=== PATIENT | male | born 1950 | race Caucasian/White ===

== ENCOUNTER 2023-07-21 00:47 | Inpatient (IN) | payer MEDICARE, BC ==
[2023-07-21 01:44] VITALS: BMI 28.8
[2023-07-21] MEDS ORDERED: Acetaminophen 325 MG TAB PO PRN (01:53)
[2023-07-21] MEDS ORDERED: Ondansetron PF 4 MG/2 ML Vial IVP PRN (01:53)
[2023-07-21 02:24] LABS: #Basophils 0.06 10x3/uL (0.0-0.2); %Basophils 0.7 % (0.0-1.0); %Eosinophils 1.8 % (0.0-10.0); %Lymphocytes 16.9 % (21.0-51.0); %Monocytes 6.8 % (0.0-10.0); %Neutrophils 73.3 % (42.0-75.0); Hematocrit 50.7 % (42.0-52.0); Hemoglobin 17.1 g/dL (14.0-18.0); Mean Corpuscular HGB CONC 33.7 g/dL (32.0-36.0); Mean Corpuscular Hemoglobin 33.2 pg (27.0-31.0); Mean Corpuscular Volume 98.4 fL (78.0-98.0); Mean Platelet Volume 8.8 fL (7.4-10.4); Platelet Count 142 10x3/uL (130-400); RBC Distribution Width 14.7 % (11.5-14.5); Red Blood Cell (RBC) Count 5.15 mill/uL (4.70-6.10)
[2023-07-21 02:29] LABS: Hemoglobin A1c 5.7 % (4.0-6.0)
[2023-07-21] MEDS ORDERED: Labetalol HCl 100 MG/20 ML VIAL SLOW IVP PRN (02:35)
[2023-07-21 02:39] LABS: Anion Gap 15 mmol/L (10-20); BUN (Urea Nitrogen) 21 mg/dL (8.4-25.7); Calc. Creatinine Clearance 88 mL/min (70-130); Calcium 9.6 mg/dL (7.8-10.44); Carbon Dioxide 21 mmol/L (23-31); Cardiac Risk 4.8 (Less than 4.5); Chloride 110 mmol/L (98-107); Cholesterol 187 mg/dl (< 200 Desired); Estimated GFR 70; Glucose 94 mg/dL (83-110); HDL Cholesterol 39 mg/dL (>60 Neg Risk); LDL Cholesterol, Calculated 128 mg/dL; Potassium 4.4 mmol/L (3.5-5.1); Sodium 142 mmol/L (136-145); Triglycerides 98 mg/dL (Less than 150)
[2023-07-21] MEDS: Ipratropium/Albuterol 3 ML NEB NEB SCH (05:31)
[2023-07-21] MEDS: Ipratropium/Albuterol 3 ML NEB IPPB SCH (06:52)
[2023-07-21] MEDS: Mometasone 200 MCG/Formoterol 5 MCG 120 PUFF INHALER INH SCH (06:55)
[2023-07-21] MEDS: Aspirin 81 mg Enteric Coated Tablet PO SCH (08:38)
[2023-07-21] MEDS: Enoxaparin 40 MG (0.4 mL) SYRINGE SC SCH (08:38)
[2023-07-21] MEDS: hydrALAZINE 20 MG/ML VIAL SLOW IVP PRN (14:56)
[2023-07-21] MEDS: Atorvastatin Calcium 40 MG TAB PO SCH (21:51)
[2023-07-22 04:19] LABS: Anion Gap 15 mmol/L (10-20); BUN (Urea Nitrogen) 18 mg/dL (8.4-25.7); Calc. Creatinine Clearance 83 mL/min (70-130); Calcium 9.1 mg/dL (7.8-10.44); Carbon Dioxide 22 mmol/L (23-31); Chloride 107 mmol/L (98-107); Estimated GFR 66; Glucose 87 mg/dL (83-110); Potassium 3.7 mmol/L (3.5-5.1); Sodium 140 mmol/L (136-145)
[2023-07-22 04:31] LABS: Hemoglobin 15.9 g/dL (14.0-18.0); Mean Corpuscular Volume 98.2 fL (78.0-98.0); Red Blood Cell (RBC) Count 4.89 mill/uL (4.70-6.10)
[2023-07-22 04:32] LABS: #Basophils 0.06 10x3/uL (0.0-0.2); %Basophils 0.9 % (0.0-1.0); %Eosinophils 3.1 % (0.0-10.0); %Lymphocytes 22.1 % (21.0-51.0); %Monocytes 8.4 % (0.0-10.0); %Neutrophils 65.2 % (42.0-75.0); Mean Corpuscular HGB CONC 33.1 g/dL (32.0-36.0); Mean Corpuscular Hemoglobin 32.5 pg (27.0-31.0); Mean Platelet Volume 9.3 fL (7.4-10.4); Platelet Count 138 10x3/uL (130-400); RBC Distribution Width 14.8 % (11.5-14.5)
[2023-07-22] MEDS: Clopidogrel Bisulfate 75 MG TAB PO SCH (07:46)
[2023-07-22] MEDS: Amlodipine 5 MG TAB PO SCH ×2 (10:29→21:15)
[2023-07-22] MEDS: Lisinopril 10 MG TAB PO SCH (13:24)
[2023-07-23 04:09] LABS: #Basophils 0.06 10x3/uL (0.0-0.2); %Basophils 0.9 % (0.0-1.0); %Eosinophils 2.3 % (0.0-10.0); %Lymphocytes 19.9 % (21.0-51.0); %Monocytes 8.4 % (0.0-10.0); Hematocrit 49.6 % (42.0-52.0); Hemoglobin 16.6 g/dL (14.0-18.0); Mean Corpuscular HGB CONC 33.5 g/dL (32.0-36.0); Mean Corpuscular Hemoglobin 33.5 pg (27.0-31.0); Mean Platelet Volume 9.2 fL (7.4-10.4); Platelet Count 128 10x3/uL (130-400); RBC Distribution Width 14.8 % (11.5-14.5); Red Blood Cell (RBC) Count 4.96 mill/uL (4.70-6.10)
[2023-07-23 04:18] LABS: Anion Gap 14 mmol/L (10-20); BUN (Urea Nitrogen) 17 mg/dL (8.4-25.7); Calc. Creatinine Clearance 93 mL/min (70-130); Calcium 9.7 mg/dL (7.8-10.44); Carbon Dioxide 22 mmol/L (23-31); Chloride 108 mmol/L (98-107); Estimated GFR 76; Glucose 105 mg/dL (83-110); Potassium 3.8 mmol/L (3.5-5.1); Sodium 140 mmol/L (136-145)
[2023-07-23] MEDS: Lisinopril 20 MG TAB PO SCH (08:39)
[2023-07-23] MEDS: Amlodipine 10 MG TAB PO SCH (08:47)
[2023-07-23] MEDS ORDERED: Amlodipine 5 MG TAB PO SCH (09:00)
[2023-07-23 23:58] VITALS: BP 171/109; TEMP 97.8
== END 2023-07-24 02:55 | disposition home or self-care (01) | DRG 65 ==
LOC: 2SE 01:14 → INTOOBSV 01:14 → OBSVTOIN 19:35
PROVIDERS: ADMIT Internal Medicine; ATTEND Family Medicine
DX: I63.9 Cerebral infarction, unspecified (principal); G81.94 Hemiplegia, unspecified affecting left nondominant side; I10 Essential (primary) hypertension; I25.10 Atherosclerotic heart disease of native coronary artery without angina pectoris; F17.210 Nicotine dependence, cigarettes, uncomplicated; J44.9 Chronic obstructive pulmonary disease, unspecified; G47.33 Obstructive sleep apnea (adult) (pediatric); Z90.49 Acquired absence of other specified parts of digestive tract; Z98.49 Cataract extraction status, unspecified eye; Z95.818 Presence of other cardiac implants and grafts; Z71.6 Tobacco abuse counseling
CPT/HCPCS: 36415; 36416; 80048; 80061; 83036; 83880; 85025; 93306; 93880; 93970; 94640; 96372; 96374; G0378; J0360; J1650; J7620